=== PATIENT | female | born 1955 | race Two or more races ===

== ENCOUNTER → 2023-01-23 | Outpatient (CLI) | payer MEDICARE ==
[~2023-01-23] VITALS: Ht 160 cm; Wt 84.4 kg
[~2023-01-23] MED LIST: ADENOSINE 71 MG in GIVE UN-DILUTED 0 ML IV STA
== END | disposition home or self-care (01) ==
LOC: XYW 08:44
PROVIDERS: ATTEND Internal Medicine
DX: R07.89 Other chest pain (principal); I10 Essential (primary) hypertension; M19.90 Unspecified osteoarthritis, unspecified site; R63.8 Other symptoms and signs concerning food and fluid intake; E04.2 Nontoxic multinodular goiter; N63.10 Unspecified lump in the right breast, unspecified quadrant; Z68.33 Body mass index [BMI] 33.0-33.9, adult
CPT/HCPCS: 78452; 93017; A9500; J0153